=== PATIENT | female | born 1985 | race Caucasian/White ===

== ENCOUNTER 2017-10-07 01:54 | Emergency (ER) | payer BC ==
[~2017-10-07] VITALS: Ht 170.2 cm; Wt 131.5 kg
[2017-10-07 01:55] VITALS: BP_SYST 156
[2017-10-07] MEDS ORDERED: IPRATROPIUM/ALBUTEROL SULFATE 3 ML AMPUL.NEB INH ONE (02:15)
[2017-10-07] MEDS ORDERED: methylPREDNISolone SOD SUCC/PF 62.5 MG/ML VIAL IM ONE (02:15)
[2017-10-07 02:40] VITALS: BP_SYST 151
== END 2017-10-07 01:55 | disposition home or self-care (01) ==
LOC: SED 01:54
DX: J45.901 Unspecified asthma with (acute) exacerbation (principal)
CPT/HCPCS: 94640; 96372; 99283; J2930

== ENCOUNTER 2022-02-22 15:34 | Emergency (ER) | payer BC, MEDICAID ==
[~2022-02-22] VITALS: Ht 170.2 cm; Wt 131.5 kg
[2022-02-22] MEDS ORDERED: PRED20TA PO (16:21)
[2022-02-22] MEDS ORDERED: NIRM1TAB PO (16:21)
[2022-02-22 16:25] VITALS: BP_SYST 155
--- NOTE | 2022-02-22 16:25 | NUR ---
Patient to ER bed TENT to gown for evaluation. Side rails up.
--- NOTE | 2022-02-22 16:30 | NUR ---
PT CAME IN FROM HOME C/O BEING COVID + AND REQUESTING PAXLOVID RX DUE TO HX OF ASTHMA. PT IS AMBULATORY, AAOX4, VSS
--- NOTE | 2022-02-22 16:40 | NUR ---
ER DR. CROSS IN TENT EXAMINING PT
--- NOTE | 2022-02-22 17:53 | NUR ---
Patient given written and verbal discharge instructions and verbalizes understanding. ER MD discussed with patient the results and treatment provided. Patient in stable condition. ID arm band removed. Rx of PAXLOVID AND PREDNISONE given. Patient educated on pain management and to follow up with PMD. Pain Scale 0/10. Opportunity for questions provided and answered. Medication side effect fact sheet provided.
[2022-02-22 17:54] VITALS: BP_SYST 149
== END 2022-02-22 17:54 | disposition home or self-care (01) ==
LOC: SED 15:34
DX: U07.1 COVID-19 (principal); J40 Bronchitis, not specified as acute or chronic; R05.9 Cough, unspecified
CPT/HCPCS: 99283